=== PATIENT | male | born 1945 | race Caucasian/White ===

== ENCOUNTER 2017-08-07 12:28 | Outpatient (CLI) | payer MEDICARE, OTHER | END 2017-08-07 23:59 | disposition home or self-care (01) | LOC: CARD DIAG 12:28 | PROVIDERS: ATTEND Internal Medicine Cardiovascular Disease | DX: Z01.818 Encounter for other preprocedural examination (principal); I08.3 Combined rheumatic disorders of mitral, aortic and tricuspid valves; I25.10 Atherosclerotic heart disease of native coronary artery without angina pectoris; I10 Essential (primary) hypertension; I25.2 Old myocardial infarction | CPT/HCPCS: 93306 ==